=== PATIENT | female | born 1970 | race Caucasian/White ===

== ENCOUNTER 2020-08-03 22:50 | Observation (INO) ==
[2020-08-03] MEDS ORDERED: SODIUM CHLORIDE 0.9% 500 ML IV STA (23:21)
[2020-08-03 23:29] LABS: Basophils # 0.1 10*3/uL (0.0-0.2); Basophils % 0.3 % (0.0-0.8); Eosinophils # 0.2 10*3/uL (0.0-0.87); Eosinophils % 1.4 % (0.00-10.9); Hematocrit 40.5 VOL% (35.7-47.0); Hemoglobin 13.3 GM/DL (12.0-16.0); Immature Granulocytes % 0.5 %; Immature Granulocytes Absolute 0.08 #; Lymphocytes # 2.7 10*3/uL (1.4-4.0); Lymphocytes % 18.4 % (21.3-54.2); Mean Corpuscular HGB Conc 32.8 GM/DL (32-36); Mean Corpuscular Volume 85.3 FL (87-102); Mean Platelet Volume 10.8 FL (9.6-12.0); Monocytes % 6.8 % (1.7-12.7); Neutrophils % 72.6 % (38.7-73.9); Platelet Count 449 T/CUMM (130-400); Red Blood Count 4.75 MC/CUMM (3.8-5.5); Red Cell Distribution Width 13.7 % (9.3-17.3); White Blood Count 14.7 T/CUMM (4-12)
[2020-08-03 23:40] LABS: PT Patient Result 10.9 SECS (9.8-11.9)
[2020-08-03 23:59] LABS: Albumin 3.9 G/DL (3.4-5.0); Bilirubin,Total 0.6 MG/DL (0.2-1.0); Calcium 9.2 MG/DL (8.5-10.1); Osmolality,Calculated 276.2 MOS/KG (273-304); Potassium 4.1 MMOL/L (3.5-5.1); Total Protein 7.4 G/DL (6.4-8.2)
[2020-08-04 00:34] LABS: Bacteria,Urine Occasional /HPF (Few); Bilirubin,Urine Negative (Negative); Blood, Urine Negative (Negative); Glucose,Urine (UA) >=500 mg/dL (Negative); Ketones,Urine Negative (Negative); Mucus,Urine Occasional /LPF (Occasional); Nitrite,Urine Negative (Negative); Protein,Urine Negative; RBC,Urine 1 /HPF (0-4); Squamous Epithelial Cell,Urine Occasional /HPF (0-10); Urine Appearance CLEAR (Clear); Urine Color Yellow (Yellow); Urine Specific Gravity 1.035 (1.001-1.035); Urine Urobilinogen < 2.0 EU/DL (0.2-1.0); WBC,Urine 1 /HPF (0-6)
[2020-08-04 00:37] LABS: Barbiturates Screen,Urine Negative (Negative); Benzodiazepines Screen,Urine Negative (Negative); Cannabinoid Screen,Urine Negative (Negative); Opiate Screen,Urine Positive (Negative); Phencyclidine Screen,Urine Negative (Negative)
[2020-08-04] MEDS ORDERED: SODIUM CHLORIDE 0.9% 1,000 ML IV STA (00:41)
[2020-08-04] MEDS ORDERED: DEXTROSE 50% 25 GM/50 ML VIAL IV PRN ×2 (00:46)
[2020-08-04] MEDS ORDERED: NICOTINE 21 MG/24 HR PATCH TRANSDERM PRN (00:46)
[2020-08-04] MEDS ORDERED: SIMETHICONE CHEW 125 MG TABLET PO PRN (00:46)
[2020-08-04] MEDS ORDERED: MORPHINE 4 MG/1 ML VIAL IV PRN (00:46)
[2020-08-04] MEDS ORDERED: ACETAMINOPHEN 325 MG TABLET PO PRN (00:46)
[2020-08-04] MEDS ORDERED: hydrALAZINE 20 MG/1 ML VIAL IV PRN (00:46)
[2020-08-04] MEDS ORDERED: diphenhydrAMINE CAP 25 MG CAPSULE PO PRN (00:46)
[2020-08-04] MEDS ORDERED: guaiFENesin/DM ER 600-30 MG TABLET PO PRN (00:46)
[2020-08-04] MEDS ORDERED: ZALEPLON 5 MG CAPSULE PO PRN (00:46)
[2020-08-04] MEDS ORDERED: GLUCAGON 1 MG VIAL IM PRN ×2 (00:46)
[2020-08-04] MEDS ORDERED: FLUTICASONE 50 MCG NASAL SPRAY 16 GM BOTTLE BOTH NARES PRN (00:49)
[2020-08-04] MEDS: DOXYCYCLINE HYCLATE INJ 100 MG in SODIUM CHLORIDE 0.9% 100 ML IV SCH ×2 (02:00→15:43)
[2020-08-04 04:10] LABS: Basophils % 0.2 % (0.0-0.8); Eosinophils # 0.2 10*3/uL (0.0-0.87); Eosinophils % 1.4 % (0.00-10.9); Hematocrit 35.4 VOL% (35.7-47.0); Hemoglobin 11.2 GM/DL (12.0-16.0); Immature Granulocytes % 0.7 %; Immature Granulocytes Absolute 0.11 #; Lymphocytes # 2.3 10*3/uL (1.4-4.0); Mean Corpuscular HGB Conc 31.6 GM/DL (32-36); Mean Corpuscular Volume 88.3 FL (87-102); Mean Platelet Volume 11.1 FL (9.6-12.0); Monocytes % 6.5 % (1.7-12.7); Neutrophils % 76.2 % (38.7-73.9); Platelet Count 359 T/CUMM (130-400); Red Blood Count 4.01 MC/CUMM (3.8-5.5); Red Cell Distribution Width 13.7 % (9.3-17.3); White Blood Count 15.1 T/CUMM (4-12)
[2020-08-04 04:20] LABS: Osmolality,Calculated 282.7 MOS/KG (273-304); Potassium 4.2 MMOL/L (3.5-5.1)
[2020-08-04] MEDS: INSULIN LISPRO 100 UNIT/ML SUBCUT SCH ×4 (08:10→21:14)
[2020-08-04] MEDS: ENOXAPARIN 40 MG/0.4 ML SYRINGE SUBCUT SCH (08:57)
[2020-08-04] MEDS: FOLIC ACID 0.4 MG TABLET PO SCH (08:57)
[2020-08-04] MEDS: PANTOPRAZOLE 40 MG TABLET PO SCH (08:57)
[2020-08-04] MEDS: DOCUSATE SODIUM 100 MG CAPSULE PO SCH ×2 (08:57→21:00)
[2020-08-04] MEDS: FEXOFENADINE 180 MG TABLET PO SCH (08:57)
[2020-08-04] MEDS: BISACODYL 5 MG TABLET PO SCH (13:21)
[2020-08-04] MEDS: GABAPENTIN 100 MG CAPSULE PO SCH (20:58)
[2020-08-04] MEDS ORDERED: ROSUVASTATIN 10 MG TABLET PO SCH (21:00)
[2020-08-04] MEDS ORDERED: METOPROLOL SUCCINATE XL 50 MG TABLET PO SCH (21:00)
[2020-08-04] MEDS ORDERED: PRAMIPEXOLE 0.25 MG TABLET PO SCH (21:00)
[2020-08-04] MEDS ORDERED: ASCORBIC ACID 500 MG TABLET PO SCH (21:00)
[2020-08-05 05:27] LABS: Basophils % 0.3 % (0.0-0.8); Eosinophils # 0.2 10*3/uL (0.0-0.87); Eosinophils % 2.2 % (0.00-10.9); Hematocrit 37.4 VOL% (35.7-47.0); Hemoglobin 12.2 GM/DL (12.0-16.0); Immature Granulocytes % 0.3 %; Immature Granulocytes Absolute 0.03 #; Lymphocytes # 2.3 10*3/uL (1.4-4.0); Lymphocytes % 25.6 % (21.3-54.2); Mean Corpuscular HGB Conc 32.6 GM/DL (32-36); Mean Corpuscular Volume 86.2 FL (87-102); Monocytes % 6.3 % (1.7-12.7); Neutrophils % 65.3 % (38.7-73.9); Platelet Count 321 T/CUMM (130-400); Red Blood Count 4.34 MC/CUMM (3.8-5.5); Red Cell Distribution Width 14.2 % (9.3-17.3); White Blood Count 9.1 T/CUMM (4-12)
[2020-08-05 05:44] LABS: Calcium 8.8 MG/DL (8.5-10.1); Osmolality,Calculated 272.4 MOS/KG (273-304); Potassium 3.8 MMOL/L (3.5-5.1)
[2020-08-05 07:51] VITALS: BP 113/61
[2020-08-05] MEDS: INSULIN LISPRO 100 UNIT/ML SUBCUT SCH ×2 (07:52→11:44)
[2020-08-05] MEDS: GABAPENTIN 100 MG CAPSULE PO SCH (08:45)
[2020-08-05] MEDS: FEXOFENADINE 180 MG TABLET PO SCH (08:45)
[2020-08-05] MEDS: BISACODYL 5 MG TABLET PO SCH (08:45)
[2020-08-05] MEDS: FOLIC ACID 0.4 MG TABLET PO SCH (08:45)
[2020-08-05] MEDS: PANTOPRAZOLE 40 MG TABLET PO SCH (08:45)
[2020-08-05] MEDS: ENOXAPARIN 40 MG/0.4 ML SYRINGE SUBCUT SCH (08:45)
[2020-08-05] MEDS: DOCUSATE SODIUM 100 MG CAPSULE PO SCH (08:45)
[2020-08-05] MEDS ORDERED: amLODIPine 5 MG TABLET PO SCH (09:00)
[2020-08-05] MEDS ORDERED: FLUCONAZOLE 150 MG TABLET PO ONE (10:28)
[2020-08-10] MEDS ORDERED: CHOLECALCIFEROL 5,000 UNIT TABLET PO SCH (09:00)
== END 2020-08-05 12:14 | disposition home or self-care (01) ==
LOC: N.ED 22:50 → N.EDINP 22:50 → SUATTDRO 08-04 00:46 → N.TELEN 08-04 14:02
PROVIDERS: ADMIT Hospitalist; ATTEND Internal Medicine Nephrology